=== PATIENT | female | born 1980 | race Caucasian/White ===

== ENCOUNTER 2017-01-15 16:26 | Emergency (ER) | payer OTHER ==
[~2017-01-15] VITALS: Ht 165.1 cm; Wt 136.1 kg
[2017-01-15] MEDS ORDERED: PROCHLORPERAZINE 10 MG/2 ML VIAL. IV ONE (17:15)
[2017-01-15] MEDS ORDERED: DIPHENHYDRAMINE 50 MG/ML VIAL IVP ONE (17:15)
[2017-01-15] MEDS ORDERED: DIAZEPAM 10 MG/2 ML DISP.SYRIN. IV ONE (17:15)
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
[2017-01-15 17:28] LABS: HEMOGLOBIN ISTAT 13.6 gm/dL; POTASSIUM ISTAT 3.9 mmol/L (3.5-5.0)
[2017-01-15 17:38] LABS: BILIRUBIN,URINE NEG (NEG); CLARITY,URINE CLEAR; COLOR,URINE YELLOW; GLUCOSE,URINE NEG (NEG); UROBILINOGEN,URINE 0.2 mg/dL (0.2 mg/dL)
[2017-01-15 17:39] LABS: BACTERIA,URINE FEW /HPF (0-FEW); NITRITE,URINE NEG (NEG); RBC,URINE 0 /HPF (0-2); SQUAMOUS EPITHELIAL CELL,UR OCC /LPF; WBC,URINE OCC /HPF (0-4)
[2017-01-15 17:40] LABS: U PREG PATIENT NEGATIVE (NEG)
[2017-01-15 17:50] VITALS: BP 153/98
[2017-01-15] MEDS ORDERED: IBUP600T16 PO (17:50)
[2017-01-15] MEDS ORDERED: TRIA15OI TP (17:50)
== END 2017-01-15 18:13 | disposition home or self-care (01) ==
LOC: ER 16:26
DX: R51 Headache (principal); L25.9 Unspecified contact dermatitis, unspecified cause; I10 Essential (primary) hypertension; Z88.6 Allergy status to analgesic agent
CPT/HCPCS: 80047; 81001; 81025; 96374; 96375; 99284; J0780; J1200